=== PATIENT | male | born 1990 | race Caucasian/White ===

== ENCOUNTER 2017-08-13 18:20 | Observation (INO) | payer SELFPAY ==
[~2017-08-13 18:20] MED LIST: DEXAMETHASONE SOD PHOSPHATE INJ 4 MG/1 ML VIAL ONE; KETOROLAC TROMETHAMINE 60 MG/2 ML SDV ONE; LIDOCAINE 2% INJ-PF (20 MG/ML) 2 ML AMPUL ONE; METOCLOPRAMIDE HCL INJ/PF 10 MG/2 ML SDV ONE; ONDANSETRON HCL INJ/PF 4 MG/2 ML SDV ONE; SUCCINYLCHOLINE CHLORIDE INJ 200 MG/10 ML VIAL ONE
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
[2017-08-13 19:21] LABS: ABSOLUTE EOSINOPHILS # (AUTO) 0.1 10^3/uL (0.0-0.6); ABSOLUTE LYMPHOCYTES (AUTO) 2.4 10^3/uL (0.5-4.7); ABSOLUTE MONOCYTES (AUTO) 1.3 10^3/uL (0.1-1.4); ABSOLUTE NEUT (AUTO) 5.9 10^3/uL (1.7-8.2); BASOPHILS % (AUTO) 0.3 % (0-2); EOSINOPHILS % (AUTO) 0.5 % (0-6); HEMATOCRIT 39.4 % (37.9-51.0); HEMOGLOBIN 13.5 g/dL (13.5-17.0); MEAN CORPUSCULAR HEMOGLOBIN 30.9 pg (27.0-33.4); MEAN CORPUSCULAR HGB CONC 34.3 g/dL (32.0-36.0); MEAN CORPUSCULAR VOLUME 90 fl (80-97); MONOCYTES % (AUTO) 13.3 % (3-13); PLATELET COUNT 236 10^3/uL (150-450); RED BLOOD COUNT 4.37 10^6/uL (4.35-5.55); RED CELL DISTRIBUTION WIDTH 13.6 % (11.5-14.0); SEGMENTED NEUTROPHILS % (AUTO) 60.9 % (42-78); TOTAL CELLS COUNTED % (AUTO) 100 %; WHITE BLOOD COUNT 9.7 10^3/uL (4.0-10.5)
[2017-08-13 19:41] LABS: ANION GAP 15 (5-19); BLOOD UREA NITROGEN 13 mg/dL (7-20); CALCIUM 10.1 mg/dL (8.4-10.2); CARBON DIOXIDE 27 mmol/L (22-30); CHLORIDE 102 mmol/L (98-107); GLUCOSE 110 mg/dL (75-110); SODIUM 143.8 mmol/L (137-145)
[2017-08-13 19:44] LABS: APPEARANCE,URINE CLEAR; BILIRUBIN,URINE NEGATIVE (NEGATIVE); COLOR,URINE YELLOW; GLUCOSE, URINE NEGATIVE (NEGATIVE); KETONES,URINE TRACE mg/dL (NEGATIVE); LEUKOCYTE ESTERASE,URINE NEGATIVE (NEGATIVE); NITRITE,URINE NEGATIVE (NEGATIVE); PROTEIN,URINE NEGATIVE (NEGATIVE)
[2017-08-13 20:03] LABS: URINE AMPHETAMINES SCREEN NEGATIVE; URINE BARBITURATES SCREEN NEGATIVE; URINE BENZODIAZEPINES SCREEN NEGATIVE; URINE COCAINE SCREEN NEGATIVE; URINE MARIJUANA (THC) SCREEN UNCONFIRMED POSITIVE; URINE METHADONE SCREEN NEGATIVE; URINE PHENCYCLIDINE SCREEN NEGATIVE
--- NOTE | 2017-08-13 20:03 | RADIOLOGY REPORT (SQ) ---
EXAM DESCRIPTION: CHEST 2 VIEWS COMPLETED DATE/TIME: 08/13/2017 7:55 pm REASON FOR STUDY: cp COMPARISON: 03/15/2014 EXAM PARAMETERS: NUMBER OF VIEWS: two views TECHNIQUE: Digital Frontal and Lateral radiographic views of the chest acquired. RADIATION DOSE: NA LIMITATIONS: none FINDINGS: LUNGS AND PLEURA: No opacities, masses or pneumothorax. No pleural effusion. MEDIASTINUM AND HILAR STRUCTURES: No masses or contour abnormalities. HEART AND VASCULAR STRUCTURES: Heart normal size. No evidence for failure. BONES: No acute findings. HARDWARE: None in the chest. OTHER: No other significant finding. IMPRESSION: NO ACUTE RADIOGRAPHIC FINDING IN THE CHEST. TECHNICAL DOCUMENTATION: JOB ID: [id number] EP[employer]- All Rights Reserved Reading location - IP/workstation name: [email or web address]
[2017-08-13] MEDS ORDERED: HYDROMORPHONE HCL INJ/PF 2 MG/ML AMPULE IV ONE (20:16)
[2017-08-13] MEDS ORDERED: NORMAL SALINE 1000 ML 1,000 ML IV PRN (20:26)
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
[2017-08-13] MEDS ORDERED: ERTAPENEM SODIUM INJ 1 GM VIAL IV ONE (20:36)
[2017-08-13 21:15] LABS: ALANINE AMINOTRANSFERASE 53 U/L (21-72); ALBUMIN 4.3 g/dL (3.5-5.0); ALKALINE PHOSPHATASE 85 U/L (38-126); ASPARTATE AMINO TRANSFERASE 49 U/L (17-59); BILIRUBIN,DIRECT 0.5 mg/dL (0.0-0.4); BILIRUBIN,TOTAL 1.5 mg/dL (0.2-1.3); PHOSPHORUS 3.7 mg/dL (2.5-4.5); TOTAL PROTEIN 8.4 g/dL (6.3-8.2)
[2017-08-13] MEDS ORDERED: BUPIVACAINE HCL 0.5 % INJ/PF 30 ML SDV ONE (21:48)
[2017-08-13] MEDS: CLINDAMYCIN 600 MG/D5W RTU 600 MG/50 ML RTUPB IV SCH (21:50)
[2017-08-13] MEDS ORDERED: MIDAZOLAM 2 MG/2 ML INJ ONE (21:52)
[2017-08-13] MEDS ORDERED: KETAMINE HCL INJ 500 MG/10 ML VIAL ONE (21:52)
[2017-08-13] MEDS ORDERED: FENTANYL CITRATE INJ/PF 100 MCG/2 ML AMPUL ONE ×2 (21:52→23:42)
[2017-08-13] MEDS ORDERED: PROPOFOL INJ 200 MG/20 ML VIAL IV ONE (21:53)
[2017-08-13] MEDS ORDERED: DEXMEDETOMIDINE INJ 80 MCG/20 ML VIAL IV ONE (21:53)
[2017-08-13] MEDS ORDERED: ACETAMINOPHEN 100 ML IV ONE (21:53)
[2017-08-13] MEDS ORDERED: MORPHINE SULFATE 10 MG/ML INJ ONE (22:41)
[2017-08-13] MEDS ORDERED: MORPHINE SULFATE 10 MG/ML INJ IV PRN (22:48)
[2017-08-13] MEDS ORDERED: ONDANSETRON HCL INJ/PF 4 MG/2 ML SDV IV PRN (22:48)
[2017-08-13] MEDS ORDERED: DIPHENHYDRAMINE HCL 50 MG/ML VIAL IV PRN (22:48)
[2017-08-13] MEDS ORDERED: FENTANYL CITRATE INJ/PF 100 MCG/2 ML AMPUL IV PRN ×3 (22:48)
[2017-08-13] MEDS ORDERED: MEPERIDINE HCL/PF INJ 25 MG/1 ML DISP.SYRIN IV PRN (22:48)
[2017-08-13] MEDS ORDERED: PROMETHAZINE HCL INJ 25 MG/1 ML VIAL IV PRN ×2 (22:48)
--- NOTE | 2017-08-13 23:16 | Operative Report ---
Operative Report DATE OF SURGERY: 08/13/17 PREOPERATIVE DIAGNOSIS: Right antecubital fossa abscess POSTOPERATIVE DIAGNOSIS: Right antecubital fossa abscess OPERATION: Incision and drainage of right antecubital fossa abscess SURGEON: MILLIE ADAMS ANESTHESIA: GA TISSUE REMOVED OR ALTERED: Pus sent for Gram stain and culture COMPLICATIONS: None ESTIMATED BLOOD LOSS: 20 cc INTRAOPERATIVE FINDINGS: Approximately 7 x 6 cm abscess pocket in the right antecubital fossa PROCEDURE: Informed consent was obtained. Patient was brought to the operating room and placed on the operating room table in the supine position. After satisfactory induction of general anesthesia patient's right arm was prepped and draped in usual sterile fashion. At the antecubital fossa patient had diffuse area of erythema and induration and central fluctuance. A longitudinal incision was made overlying the antecubital fossa. Approximately 5 cm incision had to be made to obtain adequate drainage. There was copious amounts of foul-smelling pus all loculations were broken up. The pus was deep to the antecubital veins which were intact. The pus pocket measured about 7 x 6 cm in size. The wound was explored to make sure there were no undrained tracts. The wound was then irrigated and packed with gauze. Of note to hemostasis was achieved with electrocautery. Hemostasis appeared excellent at the end of the case. Marcaine was injected at the operative site. Patient tolerated procedure well with no apparent complications and was taken to the recovery area in stable condition.
[2017-08-14] MEDS: CLINDAMYCIN 600 MG/D5W RTU 600 MG/50 ML RTUPB IV SCH ×3 (05:07→22:59)
--- NOTE | 2017-08-14 07:25 | EKG REPORT ---
SEVERITY:- ABNORMAL ECG - SINUS RHYTHM MULTIPLE VENTRICULAR PREMATURE COMPLEXES : Confirmed by: Monty Newsome MD 14-Aug-2017 07:24:56
[2017-08-14] MEDS ORDERED: ERTAPENEM SODIUM 1 GM in NORMAL SALINE 50 ML IV SCH ×2 (10:00→22:00)
--- NOTE | 2017-08-14 10:47 | PDOC PROGRESS REPORT ---
Subjective Progress Note for:: 08/14/17 Subjective:: Feels better. Less arm pain. Reason For Visit: RIGHT ARM ABSCESS, SUBSTANCE ABUSE Physical Exam Vital Signs: Temp Pulse Resp BP Pulse Ox 97.5 F 44 L 16 89/44 L 96 08/14/17 03:19 08/14/17 03:19 08/14/17 00:52 08/14/17 03:19 08/14/17 03:19 Intake & Output 08/13/17 08/14/17 08/15/17 06:59 06:59 06:59 Intake Total 1350 Output Total 5 Balance 1345 Weight 72.6 kg General appearance: PRESENT: no acute distress, cooperative Respiratory exam: PRESENT: clear to auscultation yessy Cardiovascular exam: PRESENT: RRR Extremities exam: PRESENT: other - Antecubital fossa wound is clean with decreased surrounding swelling and erythema. Neurological exam: PRESENT: awake Psychiatric exam: PRESENT: appropriate affect Results Impressions: Chest X-Ray 08/13/17 18:54 IMPRESSION: NO ACUTE RADIOGRAPHIC FINDING IN THE CHEST. Assessment & Plan - Diagnosis (1) Abscess of right arm Is this a current diagnosis for this admission?: Yes Plan: Status post incision drainage. Patient responded well with surgical therapy. Will start dressing changes. Probable discharge the patient home tomorrow. Hopefully cultures will be back by then. Overall patient looks markedly better , appears calm and no longer anxious. His heart is regular rate and rhythm with no evidence of ectopy on auscultation. (2) Chest pain Qualifiers: Chest pain type: unspecified Qualified Code(s): R07.9 - Chest pain, unspecified Is this a current diagnosis for this admission?: Yes
[2017-08-14] MEDS: KETOROLAC TROMETHAMINE INJ/PF 30 MG/1 ML SDV IV PRN (17:57)
[2017-08-14] MEDS: MORPHINE SULFATE 10 MG/ML INJ IV PRN (19:50)
[2017-08-15] MEDS: MORPHINE SULFATE 10 MG/ML INJ IV PRN (00:13)
[2017-08-15] MEDS: KETOROLAC TROMETHAMINE INJ/PF 30 MG/1 ML SDV IV PRN (06:12)
[2017-08-15] MEDS: CLINDAMYCIN 600 MG/D5W RTU 600 MG/50 ML RTUPB IV SCH (06:13)
--- NOTE | 2017-08-15 09:36 | PDOC DISCHARGE SUMMARY ---
General - Admit/Disc Date/PCP Admission Date/Primary Care Provider: 08/13/17 20:42 Discharge Date: 08/15/17 - Discharge Diagnosis (1) Abscess of right arm Is this a current diagnosis for this admission?: Yes - Additional Information Discharge Diet: As Tolerated Discharge Activity: Activity As Tolerated Home Medications: No Home Medications 08/13/17 History of Present Illness Patient complains of: Right upper extremity abscess. History of Present Illness: DONAVAN SMITH is a 26 year old male with a large right upper extremity abscess. The patient was admitted to the hospital for definitive surgical care. Hospital Course Hospital Course: The patient was taken to the operating room where incision and drainage was performed. The wound was irrigated and the patient was started on antibiotics. Over the last several days the patient has been afebrile, and his erythema/ induration have significantly improved. The patient is ambulating, tolerating a diet, afebrile, and his white blood cell count is normal. At this time, he has reached maximal hospital benefit. He is stable for discharge. Physical Exam Vital Signs: Temp Pulse Resp BP Pulse Ox 97.7 F 55 L 16 116/52 L 98 08/15/17 07:42 08/15/17 07:42 08/15/17 07:42 08/15/17 07:42 08/15/17 07:42 Intake & Output 08/14/17 08/15/17 08/16/17 06:59 06:59 06:59 Intake Total 1350 2122 173 Output Total 5 Balance 1345 2122 173 Weight 72.6 kg 76.7 kg Results Impressions: Chest X-Ray 08/13/17 18:54 IMPRESSION: NO ACUTE RADIOGRAPHIC FINDING IN THE CHEST. Qualifiers - * PATIENT BEING DISCHARGED WITH ANY OF THE FOLLOWING DIAGNOSIS: No Plan Discharge Plan: Discharge home. Diet: As tolerated. Activity: As tolerated. Damp dressing changes to right upper extremity twice daily. Bactrim DS, 2 tabs p.o. twice daily 7 days. Toradol 10 mg p.o. every 6 hours as needed pain, 5 days. Time Spent: Less than 30 Minutes
[2017-08-15 10:38] LABS: HEPATITIS A AB IGM Negative (Negative); HEPATITIS B CORE AB IGM Negative (Negative); HEPATITS B SURFACE ANTIGEN Negative (Negative)
[2017-08-15 11:45] LABS: HEPATITIS C VIRUS ANTIBODY >11.0 s/co ratio (0.0-0.9)
[2017-08-15 12:15] VITALS: BP 141/57
== END 2017-08-15 12:17 | disposition home or self-care (01) ==
LOC: ER 18:20 → EH 20:42 → 4N 08-14 00:59
PROVIDERS: ATTEND Surgery
PROC: 0J9D0ZZ Drainage of Right Upper Arm Subcutaneous Tissue and Fascia, Open Approach (ICD-10-PCS; principal; 2017-08-13 22:35)
DX: L02.413 Cutaneous abscess of right upper limb (principal); R53.1 Weakness; R07.89 Other chest pain; F17.200 Nicotine dependence, unspecified, uncomplicated; F41.9 Anxiety disorder, unspecified; F11.10 Opioid abuse, uncomplicated; F12.10 Cannabis abuse, uncomplicated; R06.02 Shortness of breath; R50.9 Fever, unspecified; R07.1 Chest pain on breathing; F17.210 Nicotine dependence, cigarettes, uncomplicated
CPT/HCPCS: 93005; 99285; 96375; 96365; 96367; 36415; 87040; 87070; 87205; 82550; 83735; 84100; 85025; 85652; 87075; 87077; 80076; 80048; 81001; 84484; 86701; 80307; 80074; 93306; 71046; 93010; 10060; J2250; J3490 ×5; J1100; J1885 ×3; J3010; J1335 ×2; J2765; J2270 ×3; J1170; J0330; J2405; J7030; J2704; J0131; 400

== ENCOUNTER 2017-11-24 12:36 | Emergency (ER) | payer SELFPAY ==
[2017-11-24] MEDS ORDERED: OXYCODONE-ACETAMINOPHEN 5-325 MG TABLET PO ONE (14:28)
--- NOTE | 2017-11-24 14:28 | ER Document Report ---
ED Medical Screen (RME) - General Chief Complaint: Flank Pain Stated Complaint: FLANK PAIN Time Seen by Provider: 11/24/17 14:28 Mode of Arrival: Ambulatory Information source: Patient Notes: This is a 26-year-old man with a history of kidney stones in the presents to the emergency room with 2 days history of right flank pain. Patient states it is very similar to previous kidney stones. He denies any pain at McBurney's point. He denies any fever. He denies any chills. TRAVEL OUTSIDE OF THE [place] IN LAST 30 DAYS: No - HPI Onset: Yesterday Onset/Duration: Gradual Quality of pain: Dull Severity: Moderate Pain Level: 2 Associated Symptoms: denies: Chest pain, Shortness of breath Exacerbated by: Denies Relieved by: Denies Similar symptoms previously: Yes Recently seen / treated by doctor: No - Related Data Smoking: Cigar Frequency of alcohol use: None Drug Abuse: None Allergies/Adverse Reactions: No Known Allergies Allergy (Verified 11/24/17 14:29) Past Medical History - General Information source: Patient - Social History Cigarette use (# per day): Yes - Half a pack per day Chew tobacco use (# tins/day): No Frequency of alcohol use: Rare Drug Abuse: None Lives with: Family Family history: None - Past Medical History Cardiac Medical History: Reports: None Pulmonary Medical History: Reports: None EENT Medical History: Reports: None Neurological Medical History: Reports: None Endocrine Medical History: Reports: None Renal/ Medical History: Reports: Hx Kidney Stones. Denies: Hx Peritoneal Dialysis Malignancy Medical History: Reports None GI Medical History: Reports: None Musculoskeltal Medical History: Reports None Skin Medical History: Reports None Psychiatric Medical History: Reports: None Denies: Hx Depression Traumatic Medical History: Reports: None Infectious Medical History: Reports: None Past Surgical History: Reports: Hx Oral Surgery, Other - Facial surgery - Immunizations Hx Diphtheria, Pertussis, Tetanus Vaccination: No - unknown History of Influenza Vaccine for 01/2017 - 06/2017 Season: Unknown Review of Systems - Review of Systems Constitutional: denies: Chills, Fever EENT: No symptoms reported Cardiovascular: denies: Chest pain, Palpitations, Heart racing Respiratory: No symptoms reported Gastrointestinal: Abdominal pain Genitourinary: See HPI Male Genitourinary: No symptoms reported Musculoskeletal: No symptoms reported Skin: No symptoms reported Hematologic/Lymphatic: No symptoms reported Neurological/Psychological: No symptoms reported Physical Exam - Vital signs Vitals: Temp Pulse Resp BP Pulse Ox 97.8 F 68 18 115/69 99 11/24/17 12:40 11/24/17 12:40 11/24/17 12:40 11/24/17 12:40 11/24/17 12:40 Notes: Physical exam: GENERAL: 26-year-old man, alert and oriented 3 complaining of right flank pain HEAD: Atraumatic, normocephalic. EYES: Pupils equal round and reactive to light, extraocular movements intact, sclera anicteric, conjunctiva are normal. ENT: TMs normal, nares patent, oropharynx clear without exudates. Moist mucous membranes. NECK: Normal range of motion, supple without obvious mass LUNGS: Breath sounds clear to auscultation bilaterally and equal. No wheezes rales or rhonchi. HEART: Regular rate and rhythm without murmurs, rubs or gallops. ABDOMEN: Soft, normoactive bowel sounds. No tenderness to palpation. No guarding, no rebound. No masses appreciated. CVA: He does have right CVA tenderness EXTREMITIES: Normal range of motion, no pitting or edema. No clubbing or cyanosis. NEUROLOGICAL: Cranial nerves II through XII grossly intact. Normal speech, moving all extremities. PSYCH: Normal mood, normal affect. SKIN: Warm, Dry, normal turgor, no rashes or lesions noted. Course - Re-evaluation Re-evalutation: 11/24/17 16:21 Note: Patient's pain is really in the right CVA area. His abdomen has remained soft. There is no pain at McBurney's point. There is no suprapubic pain or left lower quadrant pain. He plans on going out to eat right after here so he has a good appetite. He has not had fever. He has had kidney stones before and he states it is exactly like those kidney stones. He is concerned about the hospital cost and he does not want a CT at this time. I did check a urine and shows no obvious infection and I have given him good instructions to return if his symptoms worsen. - Vital Signs Vital signs: Temp Pulse Resp BP Pulse Ox 97.1 F 63 16 128/65 H 100 11/24/17 16:09 11/24/17 16:09 11/24/17 16:09 11/24/17 16:09 11/24/17 16:09 - Laboratory Laboratory results interpreted by me: 11/24/17 14:40 Urine Protein 30 H Doctor's Discharge - Discharge Clinical Impression: Flank pain, History kidney stones Condition: Stable Disposition: HOME, SELF-CARE Instructions: Kidney Stone ([facility]) Additional Instructions: Recommendations: I want you to continue taking ibuprofen or Naprosyn for the next few days. Take the Percocet for pain not relieved by the ibuprofen/Naprosyn. This is a narcotic: See the narcotic instruction sheets below. Take the Flomax as prescribed. Drink plenty of fluids. Return to the emergency room for worsening pain, fever, vomiting, not tolerating fluids or any concerns or getting worse. Ultimately, we recommend you follow-up with urologist: It is recommended that you follow-up with a urologist: [facility] [place] [facility] [address] [place], [place] [phone] [place] [facility] [address]. [place], [place] [phone] The pain medicine you're taking prescribed as a narcotic. There are several important things you should know about this medicine: 1. This medicine contains Tylenol: It is important that you do not take Tylenol (or acetaminophen) while on this medicine. Tylenol is metabolized by the liver and taking too much Tylenol (acetaminophen) can lay to liver damage and even liver failure. 2. Taking narcotics for too long can lead to physical and mental dependence. Take this medicine only if really needed and in the lowest quantity to achieve pain relief. 3. Do not drink alcohol while on this medicine. Alcohol interacts with narcotics and the combination can be dangerous. 4. Do not drive or operate machinery while on this medicine. 5. Narcotics do cause constipation, so drink plenty of fluids and daily stool softeners. Prescriptions: Oxycodone HCl/Acetaminophen [Percocet 5-325 mg Tablet] 1 - 2 tab PO ASDIR PRN # 25 tablet PRN Reason: Tamsulosin HCl [Flomax 0.4 mg Cap.sr] 0.4 mg PO DAILY #7 cap.sr.24h
[2017-11-24] MEDS ORDERED: TAMSULOSIN HCL 0.4 MG CAP.SR.24H PO ONE (14:29)
[2017-11-24] MEDS ORDERED: KETOROLAC TROMETHAMINE 60 MG/2 ML SDV IM ONE (14:29)
[2017-11-24 15:06] LABS: APPEARANCE,URINE SLIGHTLY-CLOUDY; BILIRUBIN,URINE NEGATIVE (NEGATIVE); COLOR,URINE YELLOW; GLUCOSE, URINE NEGATIVE (NEGATIVE); KETONES,URINE NEGATIVE (NEGATIVE); LEUKOCYTE ESTERASE,URINE NEGATIVE (NEGATIVE); NITRITE,URINE NEGATIVE (NEGATIVE); PROTEIN,URINE 30 mg/dL (NEGATIVE); URINE SPECIFIC GRAVITY 1.027; UROBILINOGEN,URINE NEGATIVE mg/dL (<2.0)
[2017-11-24 16:10] VITALS: BP 128/65
== END 2017-11-24 16:10 | disposition home or self-care (01) ==
LOC: ER 12:36
DX: R10.9 Unspecified abdominal pain (principal); Z87.442 Personal history of urinary calculi; Z72.0 Tobacco use
CPT/HCPCS: 99284; 96372; 87086; 81001; J1885

== ENCOUNTER 2018-01-28 10:50 | Emergency (ER) | payer SELFPAY ==
[2018-01-28 11:06] VITALS: BP 121/75
[2018-01-28] MEDS ORDERED: KETOROLAC TROMETHAMINE 60 MG/2 ML SDV IM ONE (11:20)
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
--- NOTE | 2018-01-28 12:33 | RADIOLOGY REPORT (SQ) ---
EXAM DESCRIPTION: CERV SP 3 VIEW OR LESS COMPLETED DATE/TIME: 01/28/2018 11:48 am REASON FOR STUDY: fell off bed landed on neck. COMPARISON: None. NUMBER OF VIEWS: Five views including obliques. TECHNIQUE: AP, lateral, obliques and odontoid radiographic images acquired of the cervical spine. LIMITATIONS: None. FINDINGS: MINERALIZATION: Normal. SEGMENTATION: Normal. ALIGNMENT: Normal. VERTEBRAE: Maintained height. No fracture or worrisome bone lesion. DISCS: Multilevel disc space narrowing with osteophytes. POSTERIOR ELEMENTS: Pedicles and facets are intact. No posterior arch defects. Facet arthropathy is present. FORAMINA: Narrowed at the levels of maximal disc and facet disease. HARDWARE: None in the spine. PARASPINAL SOFT TISSUES: Normal. OTHER: No other significant finding. IMPRESSION: Cervical disc disease. No acute findings. TECHNICAL DOCUMENTATION: JOB ID: [id number] [employer]- All Rights Reserved Reading location - IP/workstation name: [email or web address]
== END 2018-01-28 13:06 | disposition home or self-care (01) ==
LOC: ER 10:50
DX: S16.1XXA Strain of muscle, fascia and tendon at neck level, initial encounter (principal); M54.2 Cervicalgia; W06.XXXA Fall from bed, initial encounter; F17.210 Nicotine dependence, cigarettes, uncomplicated
CPT/HCPCS: 99283; 96372; 72040; J1885

== ENCOUNTER 2018-01-29 11:53 | Emergency (ER) | payer SELFPAY ==
[2018-01-29 13:13] LABS: URINE BARBITURATES SCREEN NEGATIVE; URINE BENZODIAZEPINES SCREEN NEGATIVE; URINE COCAINE SCREEN UNCONFIRMED POSITIVE; URINE MARIJUANA (THC) SCREEN UNCONFIRMED POSITIVE; URINE METHADONE SCREEN NEGATIVE; URINE PHENCYCLIDINE SCREEN NEGATIVE
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
--- NOTE | 2018-01-29 13:56 | RADIOLOGY REPORT (SQ) ---
EXAM DESCRIPTION: CT CERVICAL SPINE WITHOUT COMPLETED DATE/TIME: 01/29/2018 1:27 pm REASON FOR STUDY: fall on head 4 days ago. COMPARISON: None. TECHNIQUE: Axial images acquired through the cervical spine without intravenous contrast. Images re viewed with lung, soft tissue and bone windows. Reconstructed coronal and sagittal MPR images review ed. Images stored on PACS. All CT scanners at this facility use dose modulation, iterative reconstruction, and/or weight based d osing when appropriate to reduce radiation dose to as low as reasonably achievable (ALARA). [facility]: Dose Right [facility]: CareDose [facility]: Dose Right [facility]: Teradose 4D [facility]: Smart RFinity RADIATION DOSE: CT Rad equipment meets quality standard of care and radiation dose reduction techniq ues were employed. CTDIvol: 16.6 mGy. DLP: 354 mGy-cm. mGy. LIMITATIONS: None. FINDINGS: ALIGNMENT: Anatomic. MINERALIZATION: Normal. VERTEBRAL BODIES: No fractures or dislocation. DISCS: No significant disc disease. FACETS, LATERAL MASSES, POSTERIOR ELEMENTS: No fractures. No dislocation. No acute findings. HARDWARE: None in the spine. VISUALIZED RIBS: No fractures. LUNG APICES AND SOFT TISSUES: No significant or acute findings. OTHER: No other significant finding. IMPRESSION: NO ACUTE OR SIGNIFICANT FINDINGS IN THE CERVICAL SPINE. TECHNICAL DOCUMENTATION: JOB ID: [id number] Quality ID # [id number]: Final reports with documentation of one or more dose reduction techniques (e.g., Au tomated exposure control, adjustment of the mA and/or kV according to patient size, use of iterative reconstruction technique) 2010 [employer]- All Rights Reserved Reading location - IP/workstation name: [email or web address]
--- NOTE | 2018-01-29 13:58 | RADIOLOGY REPORT (SQ) ---
EXAM DESCRIPTION: CT HEAD WITHOUT COMPLETED DATE/TIME: 01/29/2018 1:27 pm REASON FOR STUDY: pain/ headache COMPARISON: 01/24/2009 TECHNIQUE: Axial images acquired through the brain without intravenous contrast. Images reviewed wi th bone, brain and subdural windows. Additional sagittal and coronal reconstructions were generated. Images stored on PACS. All CT scanners at this facility use dose modulation, iterative reconstruction, and/or weight based d osing when appropriate to reduce radiation dose to as low as reasonably achievable (ALARA). [facility]: Dose Right [facility]: CareDose [facility]: Dose Right [facility]: Teradose 4D [facility]: Smart [employer] RADIATION DOSE: CT Rad equipment meets quality standard of care and radiation dose reduction techniq ues were employed. CTDIvol: 53.2 mGy. DLP: 1044 mGy-cm. mGy. LIMITATIONS: None. FINDINGS: VENTRICLES: Normal size and contour. CEREBRUM: No masses. No hemorrhage. No midline shift. No evidence for acute infarction. Normal gra y/white matter differentiation. No areas of low density in the white matter. CEREBELLUM: No masses. No hemorrhage. No alteration of density. No evidence for acute infarction. EXTRAAXIAL SPACES: No fluid collections. No masses. ORBITS AND GLOBE: No intra- or extraconal masses. Normal contour of globe without masses. CALVARIUM: No fracture. PARANASAL SINUSES: No fluid or mucosal thickening. SOFT TISSUES: No mass or hematoma. OTHER: No other significant finding. IMPRESSION: NORMAL BRAIN CT WITHOUT CONTRAST. EVIDENCE OF ACUTE STROKE: NO. COMMENT: Quality ID # [id number]: Final reports with documentation of one or more dose reduction techniques (e.g., Automated exposure control, adjustment of the mA and/or kV according to patient size, use of iterative reconstruction technique) TECHNICAL DOCUMENTATION: JOB ID: [id number] [employer]- All Rights Reserved Reading location - IP/workstation name: [email or web address]
--- NOTE | 2018-01-29 13:59 | RADIOLOGY REPORT (SQ) ---
EXAM DESCRIPTION: CLAVICLE BILATERAL COMPLETED DATE/TIME: 01/29/2018 1:31 pm REASON FOR STUDY: fall 4 days ago out of bed. COMPARISON: None. NUMBER OF VIEWS: Two views. TECHNIQUE: Frontal and angled images were acquired of the right and left clavicle. LIMITATIONS: None. FINDINGS: MINERALIZATION: Normal. BONES: No acute fracture. No worrisome bone lesions. SOFT TISSUES: No obvious swelling or foreign body. OTHER: No other significant finding. IMPRESSION: NEGATIVE STUDY OF THE RIGHT AND LEFT CLAVICLES. NO RADIOGRAPHIC EVIDENCE OF ACUTE INJURY . TECHNICAL DOCUMENTATION: JOB ID: [id number] [employer]- All Rights Reserved Reading location - IP/workstation name: [email or web address]
[2018-01-29] MEDS ORDERED: LIDOCAINE 5% (700 MG) TRANSDERMAL ADH..PATCH TP ONE (15:11)
[2018-01-29 15:20] VITALS: BP 114/68
== END 2018-01-29 15:20 | disposition home or self-care (01) ==
LOC: ER 11:53
DX: S16.1XXA Strain of muscle, fascia and tendon at neck level, initial encounter (principal); M54.2 Cervicalgia; R51 Headache; W06.XXXA Fall from bed, initial encounter; Y93.9 Activity, unspecified; Y92.003 Bedroom of unspecified non-institutional (private) residence as the place of occurrence of the external cause; Y99.9 Unspecified external cause status; F17.200 Nicotine dependence, unspecified, uncomplicated; F14.10 Cocaine abuse, uncomplicated; F12.10 Cannabis abuse, uncomplicated; F15.10 Other stimulant abuse, uncomplicated
CPT/HCPCS: 70450; 72125; 80307; 99284

== ENCOUNTER 2018-11-01 19:21 | Emergency (ER) | payer SELFPAY ==
[2018-11-01] MEDS ORDERED: SULFAMETHOXAZOLE/TRIMETHOPRIM 800-160 MG TABLET PO ONE (19:36)
[2018-11-01] MEDS ORDERED: IBUPROFEN 600 MG TABLET PO ONE (19:36)
[2018-11-01] MEDS ORDERED: LIDOCAINE 1% INJ-PF (10 MG/ML) 30 ML SDV INJ ONE (19:36)
[2018-11-01] MEDS ORDERED: CEPHALEXIN 500 MG CAPSULE PO ONE (19:36)
[2018-11-01] MEDS ORDERED: LIDOCAINE 1% INJ (10 MG/ML) 10 ML MDV INJ ONE (19:43)
--- NOTE | 2018-11-01 20:18 | RADIOLOGY REPORT (SQ) ---
EXAM DESCRIPTION: Right forearm, two x-ray views, November 01, 2018 at 7:56 PM. CLINICAL HISTORY: possible FB COMPARISON: None FINDINGS: Two x-ray views of the right forearm were submitted. There is soft tissue swelling at the proximal/mid forearm, radial side. There is no acute fracture or dislocation. Bone mineralization is within normal limits. There is no radiopaque foreign body material. IMPRESSION: No acute fracture or dislocation.
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
[2018-11-01 21:01] VITALS: BP 118/56
== END 2018-11-01 21:09 | disposition home or self-care (01) ==
LOC: ER 19:21
DX: L02.413 Cutaneous abscess of right upper limb (principal); L03.113 Cellulitis of right upper limb; F17.200 Nicotine dependence, unspecified, uncomplicated; Z87.442 Personal history of urinary calculi
CPT/HCPCS: 99283; 73090; 10060; J3490